=== PATIENT | female | born 1995 | race Caucasian/White ===

== ENCOUNTER 2020-10-25 05:00 | Inpatient (IN) | payer BC, MEDICAID, SELFPAY ==
[2020-10-25] VITALS (31 sets, daily range): BP systolic 97–135; BP diastolic 55–79; PULSE 49–112; RESP 18–20; TEMP 36.2–36.9; BMI 33.5
[2020-10-25] MEDS: lidocaine 2% INJ 20 mL INJECTION (05:39)
[2020-10-25] MEDS: oxytocin 30 UNIT/500 ML BAG 600 UNIT IV (05:40)
[2020-10-25] MEDS: dextrose 5%-lactated ringers 1,000 ML 125 ML IV (05:40)
[2020-10-25 05:42] LABS: Basophils % 0.3 %; Hematocrit 35.9 % (37.0-47.0); Hemoglobin 11.8 g/dL (11.5-15.3); Lymphocytes # 0.6 10^3/uL (0.8-4.8); Lymphocytes % 8.2 %; Mean Corpuscular HGB Conc 32.9 g/dL (30.0-36.0); Mean Corpuscular Hemoglobin 31.7 pg (28.0-34.0); Mean Corpuscular Volume 96.5 fl (81-99); Mean Platelet Volume 9.9 fL (7.4-10.4); Monocytes # 0.2 10^3/uL (0.2-0.9); Monocytes % 2.6 %; Neutrophils # 6.15 10^3/uL (1.8-7.7); Neutrophils % 88.5 %; Nucleated Red Blood Cells % 0 %; Platelet Count 129 10^3/cmm (130-400); Red Blood Count 3.72 10^6/uL (4.1-5.3); Red Cell Distribution Width 13.3 % (12.1-15.1)
--- NOTE | 2020-10-25 07:31 | P.PCNOB_ITS ---
Delivery Note: Date of delivery: October 25, 2020 this 25-year-old 2 now para 2 female with minimal care began anatoly late yesterday evening. She was brought to [facility] OB department by her mother this morning and upon arrival she was approximately 9 cm dilated. This physician was in-house and she rapidly delivered by spontaneous vaginal delivery a healthy, viable male at 05 11. The infant weighed 8 pounds 4 ounces with Apgars of 6 and 9 at 1 and 5 minutes respectively. Upon delivery of the head the mouth and nose were suctioned at the perineum followed by unwrapping a nuchal cord x1 and delivering the remainder of the infant without problems. The infant was suctioned again prior to laying on mother's abdomen. After approximately 2 minutes the umbilical cord was not pulsating and the umbilical cord was clamped and cut by the maternal grandmother. There was a midline second-degree perineal laceration. That laceration was sutured using Vicryl suture and local anesthesia with lidocaine 1% without epinephrine. After repairing the perineal laceration the vaginal vault was swept with fundal massage and a large amount of clots were removed and the fundus was very firm after that. Presently mother and infant are doing well. Estimated blood loss was approximately 314 mL. Pre-Delivery Course: This patient had little to no care. She did have an ultrasound at approximately 34 weeks gestation which put her EDC at 10/04/2020. I will be checking to see if we have any labs at all at the clinic as there are none available at the hospital at this time. She feels that her blood type is A positive but is not completely sure. Delivery: Spontaneous vaginal delivery, rapidly. Post-Delivery Status: Patient is doing very well at this time with no significant bleeding. A&P Assessment and plan (1) Normal spontaneous vaginal delivery: Patient is doing well at this time. She will be followed for routine care. We will adjust orders as necessary. Labs are pending. Status: Acute Coding Level of Care Code Acute Weighmaster for Chg Fwd Diagnoses Normal spontaneous vaginal delivery O80
--- NOTE | 2020-10-25 07:41 | P.HP_ITS ---
Providers/Chief Complaint Admitting Physician: Lamin Aguirre MD Chief Complaint: labor History of Present Illness SYLVIE CARBONE is a 25 year old female who is a 2, now para 2 female. She is not completely sure when her last menstrual period was but she feels that she was approximately 41-1/2 weeks gestation. She did have an ultrasound done at 34 weeks on 08/25/20 which put her EDC at 10/04/2020. She feels that she is pr obably blood type a positive but cannot be sure. She had basically no care except one visit for an ultrasound. She denies any medical problems in the past. She denies any medications or drug use or abuse. There is no family history of major medical problems. Review of Systems Const: Denies: fever(s), chills or fatigue Eyes: Denies: change in vision or blurry vision ENMT: Denies: throat pain or nasal discharge Card: Denies: chest pain, palpitations or edema Resp: Denies: dyspnea, productive cough or non-productive cough GI: Denies: abdominal pain, nausea, vomiting or heartburn : Reports: vaginal bleeding (She just delivered an .) Musc: Denies: neck pain or back pain Neuro: Denies: headache(s) or weakness in extremities Psych: Denies: anxiety or depression Yousif/Lymph: Denies: easy bruising All/Imm: Denies: urticaria or throat swelling Medications/Allergies Home Medications Medication Instructions Recorded Confirmed Last Taken Type No Known Home Medications 10/25/20 10/25/20 Unknown History Allergies Allergy/AdvReac Type Severity Reaction Status Date / Time No Known Allergies Allergy Verified 10/25/20 05:43 PFSH Acute Female Reproductive History: : 2 Vitals/I&O/Wt Last Vital Signs Pulse 49 L 10/25/20 07:33 Resp 20 H 10/25/20 05:28 BP 110/65 10/25/20 07:33 Weight last 48 hrs Weight 88.451 kg Physical Exam Const: COMMON NORMALS: no acute distress and average body habitus GENERAL APPEARANCE: cooperative, comfortable and well developed Resp: COMMON NORMALS: normal respiratory effort, No retractions, No use of accessory muscles and clear to auscultation bilaterally Cardio: COMMON NORMALS: regular rate, regular rhythm and No murmurs present (Cardio) GI: COMMON NORMALS: Normal to inspection, nondistended, normoactive bowel sounds present, Soft to palpation and non-tender (Fundus is firm and about 3 cm below the umbilicus.) Extremity: COMMON NORMALS: normal to inspection, full ROM, no calf tenderness and no pedal edema Neuro: COMMON NORMALS: moves all extremities, no focal motor deficits and no sensory deficits noted Psych: COMMON NORMALS: mental status grossly normal, cooperative and normal affect Skin: COMMON NORMALS: no rashes or lesions noted and turgor normal Data : 10/25/20 05:04 A&P Assessment and plan (1) Term delivered: Patient appears to be doing very well at this time post delivery. We will be checking laboratory work for ensuring blood type and other things that need to be followed up on after delivery. Status: Acute (2) No care in current : I will look in clinic notes from [facility] to see if lab work has been done. We will monitor closely for problems. Status: Acute Attestations Medical Necessity Statement*: This patient was in active labor when she arrived and delivered shortly after arrival. She requires at least a 1 midnight hospital stay. Time Spent in Patient Care: 16 - 35 minutes Coding Level of Care Code Acute Clinical Rehabilitation Aide for Chg Fwd Diagnoses Term delivered O80 No care in current O09.30
[2020-10-25] MEDS: benzocaine-menthol 78 gm Canister 1 SPRAY TOPICAL (08:36)
[2020-10-25] MEDS: prenatal vitamin Capsule 1 CAP PO (08:37)
[2020-10-25] MEDS: ibuprofen 800 mg tablet PO ×2 (08:37→20:32)
[2020-10-25] MEDS: docusate sodium 100 mg Capsule PO ×2 (08:37→18:16)
[2020-10-25 09:13] LABS: Amphetamines Screen Urine Negative (Negative); Barbiturates Screen Urine Negative (Negative); Benzodiazepines Screen Urine Negative (Negative); Cocaine Screen Urine Negative (Negative); Opiate Screen Urine Negative (Negative); PCP Screen Urine Negative (Negative); THC Screen Urine Negative (Negative)
[2020-10-25 09:57] LABS: Hepatitis B Surface Antigen Non-Reactive (Nonreactive)
[2020-10-25 10:04] LABS: Rapid Plasma Reagin Syphilis Nonreactive (Nonreactive)
[2020-10-25 13:53] LABS: HIV 1 & 2 Antibody Non-Reactive (Non-Reactiv); HIV 1 & 2 Antigen Non-Reactive (Non-Reactiv)
[2020-10-25 19:57] LABS: Hemoglobin 9.9 g/dL (11.5-15.3); Mean Corpuscular Hemoglobin 32.2 pg (28.0-34.0); Mean Corpuscular Volume 97.7 fl (81-99); Mean Platelet Volume 9.9 fL (7.4-10.4); Platelet Count 107 10^3/cmm (130-400); Red Blood Count 3.07 10^6/uL (4.1-5.3); Red Cell Distribution Width 13.4 % (12.1-15.1); White Blood Count 5.5 10^3/uL (4.0-10.0)
[2020-10-26] VITALS (7 sets, daily range): BP systolic 89–103; BP diastolic 51–60; PULSE 81–99; RESP 16–18; TEMP 36.1–36.9
--- NOTE | 2020-10-26 08:58 | PM.OBGYDC ---
Discharge Providers ENERGY ADMINISTRATOR Date of Admission: 10/25/20 05:00 Date of Discharge: 10/26/20 Attending Provider at Admission: Lamin Aguirre MD Attending Provider at Discharge: Lamin Aguirre MD Diagnoses at Discharge Discharge Diagnosis (1) Term delivered: Status: Acute (2) No care in current : Status: Acute Reason for Visit Reason for Visit: labor Hospital Course Hospital Course Patient has done well since delivery. She has had mild lochia with no significant clots or cramping. She is ambulating well and tolerating a regular diet. The is breast-feeding well and she is felt to be stable for discharge. Information Peripartum Data: Delivery Method: Vaginal Physical Exam Const: COMMON NORMALS: no acute distress, healthy appearing, alert and well nourished HENMT: COMMON NORMALS: moist oral mucous membranes Resp: COMMON NORMALS: normal respiratory effort, No retractions, No use of accessory muscles and clear to auscultation bilaterally AUSCULTATION: clear to auscultation bilaterally Cardio: COMMON NORMALS: regular rate, regular rhythm and No murmurs present (Cardio) RATE: regular rate RHYTHM: regular rhythm GI: COMMON NORMALS: Normal to inspection, nondistended, normoactive bowel sounds present and Soft to palpation (Fundus is firm and well below the umbilicus.) PALPATION: Yes Soft to palpation (Fundus is firm and well below the umbilicus.) : COMMON NORMALS: Yes no CVA tenderness BLADDER/KIDNEY EXAM: Yes no CVA tenderness Back/Pelvis: COMMON NORMALS: no CVA tenderness Extremity: COMMON NORMALS: normal to inspection, full ROM, capillary refill normal, no calf tenderness and no pedal edema Neuro: COMMON NORMALS: moves all extremities, no focal motor deficits and no sensory deficits noted SENSORIUM/ORIENTATION: Yes alert Psych: COMMON NORMALS: mental status grossly normal and cooperative Discharge Data Data Completed and Pending: Pending at discharge Category Date Time Status Miscellaneous Gabriela t Routine Lab 10/25/20 08:40 Received Retype for Patiet s ABO/Rh Routine Lab 10/25/20 12:07 Ordered Rubeola Antibody IGG Routine Lab 10/25/20 08:30 Received Labs from last 24 hours 10/25/20 10/25/20 10/25/20 19:25 08:40 08:40 WBC 5.5 RBC 3.07 L Hgb 9.9 L Hct 30.0 L MCV 97.7 MCH 32.2 MCHC 33.0 RDW 13.4 Plt Count 107 L MPV 9.9 Urine Opiates Scre en Negative Ur Barbiturates Sc reen Negative Ur Phencyclidine S crn Negative Ur Amphetamines Sc reen Negative U Benzodiazepines Scrn Negative Urine Cocaine Scre en Negative U Marijuana (THC) Screen Negative RPR Hep Bs Antigen HIV 1&2 Ab & HIV 1 Ag HIV 1&2 Antibody Rubeola (Measles) IgG Misc Test Referenc e Pending Blood Type Rho(D) Type Antibody Screen 10/25/20 10/25/20 10/25/20 08:30 08:30 08:30 WBC RBC Hgb Hct MCV MCH MCHC RDW Plt Count MPV Urine Opiates Scre en Ur Barbiturates Sc reen Ur Phencyclidine S crn Ur Amphetamines Sc reen U Benzodiazepines Scrn Urine Cocaine Scre en U Marijuana (THC) Screen RPR Nonreactive Hep Bs Antigen HIV 1&2 Ab & HIV 1 Ag Non-reactive HIV 1&2 Antibody Non-reactive Rubeola (Measles) IgG Pending Misc Test Referenc e Blood Type Rho(D) Type Antibody Screen 10/25/20 10/25/20 08:30 05:04 WBC RBC Hgb Hct MCV MCH MCHC RDW Plt Count MPV Urine Opiates Scre en Ur Barbiturates Sc reen Ur Phencyclidine S crn Ur Amphetamines Sc reen U Benzodiazepines Scrn Urine Cocaine Scre en U Marijuana (THC) Screen RPR Hep Bs Antigen Non-reactive HIV 1&2 Ab & HIV 1 Ag HIV 1&2 Antibody Rubeola (Measles) IgG Misc Test Referenc e Blood Type A Positive Rho(D) Type Positive Antibody Screen Negative Vitals: Last Vital Signs Temp 97.2 F L 10/25/20 18:10 Pulse 85 10/26/20 04:30 Resp 18 10/25/20 09:30 BP 103/60 10/26/20 04:30 Discharge Plan Discharge Patient Disposition: Home Condition: Stable Prescriptions: New docusate sodium 100 mg Capsule 100 mg PO BID Qty: 60 RF: 0 ibuprofen 800 mg Tablet 800 mg PO TID Qty: 60 RF: 1 -U 106.5-1 mg Capsule 1 cap PO DAILY Qty: 90 RF: 0 No Action No Known Home Medications RF: 0 Discharge Orders: Discharge Order (Routine); Ordered 10/26/20 Ordered By: Lamin Aguirre Discharge Diet: Usual diet Discharge Activity: Resume usual activity Patient Instructions: Your 's Appearance (GEN), Your Baby (DC), and Nipple Soreness (DC), Breast Fullness Versus Breast Engorgement (DC), and Plugged Ducts (DC), Pre-eclampsia and Eclampsia (DC), OB Discharge Report, OB Food/Drug Interaction Guide, OB Care at Home, Opioid Safety, OB Home Care, OB Proud Parent Packet, OB Vaginal Deliveries, Abnormal Bleeding, Depression Discharge Attestations ENERGY ADMINISTRATOR Time Spent in Discharge Care*: less than 30 min Specific Discharge Activities: Specific discharge activities: educating patient, documenting/other paperwork and evaluating patient/reviewing data Coding Level of Care Code Acute Equipment Superintendent for Chg Fwd Diagnoses Term delivered O80 No care in current O09.30
[2020-10-26] MEDS: prenatal vitamin Capsule 1 CAP PO (10:27)
[2020-10-26] MEDS: ibuprofen 800 mg tablet PO ×2 (10:27→15:15)
[2020-10-26] MEDS: HYDROcodone-acetaminophen 5-325 mg Tablet PO (10:28)
== END 2020-10-26 15:30 | disposition home or self-care (01) | DRG 807 ==
PROVIDERS: Admitting Provider Family Medicine; Visit Provider Family Medicine
DX: O48.0 Post-term pregnancy (principal); Z37.0 Single live birth; Z3A.41 41 weeks gestation of pregnancy; O70.1 Second degree perineal laceration during delivery; O69.2XX0 Labor and delivery complicated by other cord entanglement, with compression, not applicable or unspecified
CPT/HCPCS: 36415; 59025; 59409; 80306; 85025; 85027; 86592; 86765; 86850; 86900; 87340; 87491; 87591; 87806; 99211

== ENCOUNTER 2021-06-01 17:12 | Day surgery (SDC) | payer BC, MEDICAID, SELFPAY ==
[2021-06-01] VITALS (7 sets, daily range): BP systolic 102–122; BP diastolic 52–76; PULSE 87–117; RESP 16–24; TEMP 36.8; O2SAT 95–98; BMI 27.1
--- NOTE | 2021-06-01 17:58 | CTR_ITS ---
PROCEDURE INFORMATION: Exam: CT Abdomen And Pelvis With Contrast Exam date and time: 06/01/2021 7:19 PM Age: 25 years old Clinical indication: Abdominal pain; Acute; Patient HX: Rlq pain; Additional info: Eval rlq pain TECHNIQUE: Imaging protocol: Computed tomography of the abdomen and pelvis with contrast. Radiation optimization: All CT scans at this facility use at least one of these dose optimization techniques: automated exposure control; mA and/or kV adjustment per patient size (includes targeted exams where dose is matched to clinical indication); or iterative reconstruction. Contrast material: OMNI 300; Contrast volume: 95 ml; Contrast route: INTRAVENOUS (IV); COMPARISON: US OB >= 14 weeks fetus [id number] 08/25/2020 3:23 PM RADIATION DOSE METRICS: Total DLP (mGy-cm): 1495.67 FINDINGS: Liver: Normal. No mass. Gallbladder and bile ducts: Normal. No calcified stones. No ductal dilation. Pancreas: Normal. No ductal dilation. Spleen: Normal. No splenomegaly. Adrenal glands: Normal. No mass. Kidneys and ureters: Punctate nonobstructing stone noted in the right kidney series 2, image 35. No hydronephrosis. Stomach and bowel: Unremarkable. No obstruction. No mucosal thickening. Appendix: Fluid-filled dilated appendix with mild mucosal thickening measuring up to 1 cm in transverse dimension. No periappendiceal fluid collection. Intraperitoneal space: Unremarkable. No free air. No significant fluid collection. Vasculature: Unremarkable. No abdominal aortic aneurysm. Lymph nodes: Unremarkable. No enlarged lymph nodes. Urinary bladder: Unremarkable as visualized. Reproductive: 2 cm right ovarian cyst, likely a dominant follicle. Bones/joints: No acute fracture. Soft tissues: Unremarkable. CT/CT abdomen pelvis w con* [id number] IMPRESSION: 1. Acute appendicitis. No periappendiceal fluid collection. 2. Punctate nonobstructing stone in the right kidney.
[2021-06-01] MEDS: morphine 4 mg/mL SDV 1 mL IVP ×2 (18:31→22:12)
[2021-06-01] MEDS: sodium chloride 0.9% 1,000 ML 999 ML IV (18:32)
[2021-06-01] MEDS: ondansetron 2 mg/ML SDV 2 mL 4 MG IVP (18:32)
[2021-06-01 18:38] LABS: Basophils # 0.1 10^3/uL (0.0-0.1); Basophils % 0.3 %; Eosinophils % 0.2 %; Hematocrit 40.7 % (37.0-47.0); Lymphocytes # 2.2 10^3/uL (0.8-4.8); Lymphocytes % 13.1 %; Mean Corpuscular HGB Conc 34.4 g/dL (30.0-36.0); Mean Platelet Volume 8.8 fL (7.4-10.4); Monocytes # 0.8 10^3/uL (0.2-0.9); Neutrophils # 13.44 10^3/uL (1.8-7.7); Neutrophils % 81.1 %; Nucleated Red Blood Cells % 0 %; Platelet Count 300 10^3/cmm (130-400); Red Blood Count 4.52 10^6/uL (4.1-5.3); Red Cell Distribution Width 12.3 % (12.1-15.1); White Blood Count 16.6 10^3/uL (4.0-10.0)
--- NOTE | 2021-06-01 18:43 | W.ED.GENADLT ---
HPI - General Adult General: Chief complaint: Abdominal Pain Stated complaint: Rt side ABD Pain possible Appendicitus Time Seen by Provider: 06/01/21 17:58 History of Present Illness: Patient is a 25-year-old female with 2 prior pregnancies presenting to the emergency room with complaints of right lower quadrant abdominal pain since 1230 today. Patient reports significant nausea vomiting fever chills and right lower quadrant abdominal pain. On arrival, patient says the pain is unrelieved and constant. Patient denies any new urinary complaints, or new vaginal discharge. No prior history of kidney stones. No prior abdominal surgery. Patient has no other focal complaints at this time. Onset: 12:30pm Duration: 6 hrs Location:home Severity:severe Associated symptoms: Reports nausea and vomiting; Deny chest pain, dyspnea, rash or palpitations Review of Systems Const: Denies: fever(s) or chills Eyes: Denies: change in vision ENMT: Denies: mouth pain Card: Denies: chest pain or palpitations Resp: Denies: dyspnea or non-productive cough GI: Reports: abdominal pain, nausea and vomiting; Denies: diarrhea : Denies: dysuria Musc: Denies: extremity pain Skin/Breast: Denies: rash or new lesions Neuro: Denies: weakness in extremities Psych: Reports: other (Normal mood) Yousif/Lymph: Denies: easy bruising PFS ED PFSH: Medical History (Updated 06/01/21 @ 19:56 by Suleman Mclaughlin MD) No pertinent past medical history Social History (Updated 06/01/21 @ 18:44 by Suleman Mclaughlin MD) Smoking and tobacco status: never smoked Alcohol intake: never Substance/Drug Use: never Physical Exam Const: COMMON NORMALS: alert HENMT: COMMON NORMALS: atraumatic HEAD & SCALP: atraumatic MOUTH: moist mucous membranes abnormal Eye: COMMON NORMALS: EOMs intact bilaterally and conjunctivae normal CONJUNCTIVA: Yes conjunctivae normal Neck/C-Spine: COMMON NORMALS: full ROM and supple Resp: COMMON NORMALS: normal respiratory effort and clear to auscultation bilaterally AUSCULTATION: clear to auscultation bilaterally Cardio: RATE: tachycardic GI: COMMON NORMALS: Soft to palpation PALPATION: Yes Soft to palpation OTHER: +moderate/severe RLQ focal TTP. +Voluntary guarding. NO guarding rebound, guarding, rigidity. No CVA tenderness to percussion. Neg Villavicencio/Neg McBurney's point tenderness, no suprabupic tenderness to palpation. Extremity: COMMON NORMALS: full ROM Neuro: SENSORIUM/ORIENTATION: Yes alert MOTOR EXAM: No Abnormal motor strength present and Other motor observations present (no focal motor deficits) Psych: COMMON NORMALS: speech normal SPEECH: Yes normal speech MOOD & AFFECT: Yes euthymic mood Course Vital Signs: Vital signs: Vital Signs Temperature 98.3 F 06/01/21 17:29 Pulse Rate 94 06/01/21 19:04 Respiratory Rate 20 H 06/01/21 19:04 Blood Pressure 112/72 06/01/21 19:04 Pulse Oximetry 97 06/01/21 19:04 MDM - General Adult Medical Decision Making 25-year-old female presenting to the emergency room with sudden onset of right lower quadrant dull pain with nausea and vomiting. Exam, patient is focally tender in the right lower quadrant. Patient is dry and tachycardic, in moderate distress. Patient received IVF, morphine, Zofran with mild improvement in symptoms. White count of 16.6. CT of the pelvis showed acute uncomplicated appendicitis. Patient received cefazolin. Case discussed with Dr. Newton. Dr. Newton recommended giving patient Zosyn. Patient received Zosyn. Patient received IVF, morphine, Zofran with significant improvement nausea vomiting abdominal pain. Disposition: admission/OR Lab Data : 06/01/21 18:26 06/01/21 18:26 Radiology Impressions Abdomen/Pelvis CT 06/01/21 17:58 IMPRESSION: 1. Acute appendicitis. No periappendiceal fluid collection. 2. Punctate nonobstructing stone in the right kidney. Laboratory Results WBC 16.6 10^3/uL (4.0-10.0) H 06/01/21 18:26 RBC 4.52 10^6/uL (4.1-5.3) 06/01/21 18:26 Hgb 14.0 g/dL (11.5-15.3) 06/01/21 18: Hct 40.7 % (37.0-47.0) 06/01/21 18:26 MCV 90.0 fl (81-99) 06/01/21 18: MCH 31.0 pg (28.0-34.0) 06/01/21 18:26 MCHC 34.4 g/dL (30.0-36.0) 06/01/21 18: RDW 12.3 % (12.1-15.1) 06/01/21 18: Plt Count 300 10^3/cmm (130-400) 06/01/21 18: MPV 8.8 fL (7.4-10.4) 06/01/21 18: Neut % (Auto) 81.1 % 06/01/21 18: Lymph % (Auto) 13.1 % 06/01/21 18: [place] % (Auto) 5.0 % 06/01/21 18: Eos % (Auto) 0.2 % 06/01/21 18: Baso % (Auto) 0.3 % 06/01/21 18: Neut # (Auto) 13.44 10^3/uL (1.8-7.7) H 06/01/21 18: Lymph # (Auto) 2.2 10^3/uL (0.8-4.8) 06/01/21 18: [place] # (Auto) 0.8 10^3/uL (0.2-0.9) 06/01/21 18: Eos # (Auto) 0.0 10^3/uL (0.0-0.8) 06/01/21 18: Baso # (Auto) 0.1 10^3/uL (0.0-0.1) 06/01/21 18: Nucleated RBC % (auto) 0 % 06/01/21 18: Nucleated RBCs # 0.0 /100WBC 06/01/21 18: PT 14.40 SECONDS (12.1-14.9) 06/01/21 19:54 INR 1.08 (0.8-1.2) 06/01/21 19:54 APTT 32.8 SECONDS (23.9-36.7) 06/01/21 19:54 Sodium 136 mmol/L (136-145) 06/01/21 18:26 Potassium 3.6 mmol/L (3.5-5.1) 06/01/21 18: Chloride 103 mmol/L (98-107) 06/01/21 18: Carbon Dioxide 19 mmol/L (22-29) L 06/01/21 18:26 Anion Gap 17.6 (5-19) 06/01/21 18:26 BUN 9 mg/dL (6-20) 06/01/21 18: Creatinine 0.7 mg/dL (0.5-0.9) 06/01/21 18:26 GFR Calculation 102.8 mL/min (90-130) 06/01/21 18: Glucose 88 mg/dL (65-115) 06/01/21 18: Calculated Osmolality 280 mOsm/kg (285-295) L 06/01/21 18:26 Calcium 9.5 mg/dL (8.5-10.5) 06/01/21 18: Total Bilirubin 1.2 mg/dL (0.15-1.2) 06/01/21 18: AST 14 U/L (0-32) 06/01/21 18: ALT 13 U/L (0-33) 06/01/21 18:26 Alkaline Phosphatase 111 IU/L (35-105) H 06/01/21 18:26 Total Protein 7.8 g/dL (6.6-8.7) 06/01/21 18: Albumin 4.4 g/dL (3.5-5.2) 06/01/21 18: Globulin 3.4 g/dL (1.3-4.6) 06/01/21 18: Lipase 30 U/L (13-60) 06/01/21 18:26 HCG, Qual Negative (Negative) 06/01/21 18:26 Urine Color Yellow (Yellow) 06/01/21 19:01 Urine Appearance Clear (CLEAR) 06/01/21 19:01 Urine pH 9 (5-7) H 06/01/21 19:01 Ur Specific [place] 1.015 (1.005-1.030) 06/01/21 19:01 Urine Protein Neg (Negative) 06/01/21 19:01 Urine Glucose (UA) Norm (Normal) 06/01/21 19:01 Urine Ketones Negative (Negative) 06/01/21 19:01 Urine Blood Neg (Negative) 06/01/21 19:01 Urine Nitrate Negative (Negative) 06/01/21 19:01 Urine Bilirubin Neg (Negative) 06/01/21 19:01 Prot Sulfosalicylic Acd Negative (Negative) 06/01/21 19:01 Urine Urobilinogen Norm mg/dL (Negative) 06/01/21 19:01 Ur Leukocyte Esterase Negative (Negative) 06/01/21 19:01 Imaging Data Other Imaging: [facility] [address] [place] [address] CT Scan Report Signed Patient: Mery Javed Unit #: [id number] : 1995 Age/Sex: 25 / F ADM Date: 06/01/21 Loc: ER Room/Bed: Attending Dr: Ordering Provider/Ordering MD: Suleman Mclaughlin MD Date of Service: 06/01/21 Procedure(s): CT abdomen pelvis w con* [id number] Accession Number(s): [id number] Report Number: [id number] PROCEDURE INFORMATION: Exam: CT Abdomen And Pelvis With Contrast Exam date and time: 06/01/2021 7:19 PM Age: 25 years old Clinical indication: Abdominal pain; Acute; Patient HX: Rlq pain; Additional info: Eval rlq pain TECHNIQUE: Imaging protocol: Computed tomography of the abdomen and pelvis with contrast. Radiation optimization: All CT scans at this facility use at least one of these dose optimization techniques: automated exposure control; mA and/or kV adjustment per patient size (includes targeted exams where dose is matched to clinical indication); or iterative reconstruction. Contrast material: OMNI 300; Contrast volume: 95 ml; Contrast route: INTRAVENOUS (IV);? COMPARISON: US OB >= 14 weeks fetus [id number] 08/25/2020 3:23 PM RADIATION DOSE METRICS: Total DLP (mGy-cm): 1495.67 FINDINGS: Liver: Normal. No mass. Gallbladder and bile ducts: Normal. No calcified stones. No ductal dilation. Pancreas: Normal. No ductal dilation. Spleen: Normal. No splenomegaly. Adrenal glands: Normal. No mass. Kidneys and ureters: Punctate nonobstructing stone noted in the right kidney series 2, image 35. No hydronephrosis. Stomach and bowel: Unremarkable. No obstruction. No mucosal thickening. Appendix: Fluid-filled dilated appendix with mild mucosal thickening measuring up to 1 cm in transverse dimension. No periappendiceal fluid collection. Intraperitoneal space: Unremarkable. No free air. No significant fluid collection. Vasculature: Unremarkable. No abdominal aortic aneurysm. Lymph nodes: Unremarkable. No enlarged lymph nodes. Urinary bladder: Unremarkable as visualized. Reproductive: 2 cm right ovarian cyst, likely a dominant follicle. Bones/joints: No acute fracture. Soft tissues: Unremarkable. CT/CT abdomen pelvis w con* [id number] IMPRESSION: 1. Acute appendicitis. No periappendiceal fluid collection. 2. Punctate nonobstructing stone in the right kidney. ? Dictated By: Naseem Sharp DO Signed By: Naseem Sharp DO Signed Date/Time: 06/01/212011 DD/ 18 Discharge Plan Discharge Patient Disposition: Admitted As Inpatient Clinical Impression: Acute appendicitis, Abdominal pain, Nausea & vomiting Coding Level of Care Code ED Exhibit Carpenter for Siobhang Fwd Exam Comprehensive
[2021-06-01 18:57] LABS: Alanine Aminotransferase 13 U/L (0-33); Albumin Level 4.4 g/dL (3.5-5.2); Alkaline Phosphatase 111 IU/L (35-105); Anion Gap 17.6 (5-19); Aspartate Amino Transferase 14 U/L (0-32); Blood Urea Nitrogen 9 mg/dL (6-20); Calcium 9.5 mg/dL (8.5-10.5); Carbon Dioxide 19 mmol/L (22-29); Chloride 103 mmol/L (98-107); Globulin 3.4 g/dL (1.3-4.6); Glomerular Filtration Rate 102.8 mL/min (90-130); Glucose 88 mg/dL (65-115); Lipase 30 U/L (13-60); Osmolality Calculated 280 mOsm/kg (285-295); Potassium 3.6 mmol/L (3.5-5.1); Sodium 136 mmol/L (136-145); Total Bilirubin 1.2 mg/dL (0.15-1.2); Total Protein 7.8 g/dL (6.6-8.7)
[2021-06-01 18:58] LABS: HCG, Serum Qual Negative (Negative)
[2021-06-01] MEDS: HYDROmorphone 1 mg/mL INJ 1 mL 0.5 MG IVP (19:03)
[2021-06-01] MEDS: ceFAZolin 1,000 MG in sodium chloride 0.9% (plus) 50 ML 100 MG IV (19:04)
[2021-06-01 19:07] LABS: Add Urine Microscopic? NO; Charge for UA Resulting for Rev
[2021-06-01 19:15] LABS: Bilirubin Urine Neg (Negative); Blood Urine Neg (Negative); Glucose Urine UA Norm (Normal); Ketones Urine Negative (Negative); Leukocyte Esterase Urine Negative (Negative); Nitrate Urine Negative (Negative); Protein Urine Neg (Negative); Specific Gravity, Urine 1.015 (1.005-1.030); Sulfosalicylic Acid Urine Negative (Negative); Urine Appearance Clear (CLEAR); Urine Color Yellow (Yellow); Urobilinogen Urine Norm (Negative); pH Urine 9 (5-7)
[2021-06-01] MEDS: iohexol 300 mg/mL 100 mL Btl IV (19:26)
[2021-06-01 20:14] LABS: INR 1.08 (0.8-1.2)
[2021-06-01 20:15] LABS: Partial Thromboplastin Time 32.8 SECONDS (23.9-36.7)
[2021-06-01] MEDS: piperacillin-tazobactam 4.5 GM in sodium chloride 0.9% (plus) 50 ML IV (20:54)
--- NOTE | 2021-06-01 22:10 | P.ANESASSM_ITS ---
Pre-Anesthetic Assessment Height/Weight: Height 1.63 m Weight 71.668 kg Temp Pulse Resp BP Pulse Ox 98.3 F 92 16 102/76 95 06/01/21 17:29 06/01/21 22:09 06/01/21 22:09 06/01/21 22:09 06/01/21 22:09 Preop Diagnosis: acute appendicitis Operation Date: 06/02/21 06:00 Proposed Procedures p Laparoscopic Appendectomy(Not Applicable) - Mukesh Newton MD Familial anesthetic complications: none Was Beta Ewelina taken within 24 hours: N/A Was Clonidine taken within 24 hours: N/A Social No alcohol and No tobacco Exam alert, oriented x 3, clear to auscultation bilaterally and regular rate & rhythm Airway Submandibular: within normal limits Cervical ROM: within normal limits Mallampati: Class II Dentition: full Comments: Comments: Missing molar History/ROS No significant complaints Pulmonary None reported CV/HEM None reported None reported GI Acute appendicitis Metabolic None reported Musc/skel None reported Neuropsych None reported Anesthetic Plan ASA status: 2 Anesthesia: Anesthesia Evaluation and General Other: We discussed risk and benefits of general anesthesia including PONV, sore throat (sometimes severe), corneal abrasion, positioning and peripheral nerve injuries, life threatening allergic reaction, post operative ICU admission requiring prolonged intubation, stroke, heart attack, , and rare incidences of recall. Patient consents to proceed with general anesthesia. Risk of > 500 ml blood loss (7ml/kg in children): No Medications/Allergies Home Medications Medication Instructions Recorded Confirmed Last Taken Type No Known Home Medications 06/01/21 06/01/21 Unknown History Allergies Allergy/AdvReac Type Severity Reaction Status Date / Time No Known Allergies Allergy Verified 06/01/21 18:48 Current Medications Generic Name Dose Route Start Last Admin Trade Name Freq PRN Reason Stop Dose Admin Piperacillin Sod/Tazobactam 50 mls @ 100 mls/hr 06/01/21 20:15 06/01/21 20:54 Sod 4.5 gm/ Sodium Chloride IV 100 mls/hr Q8H LUCIA Administration Protocol [facility] Anesthesia Medical History (Updated 06/01/21 @ 19:56 by Suleman Mclaughlin MD) No pertinent past medical history Social History (Updated 06/01/21 @ 18:44 by Suleman Mclaughlin MD) Smoking and tobacco status: never smoked Alcohol intake: never Substance/Drug Use: never Data Anesthesia : 06/01/21 18:26 06/01/21 18:26 Short CBC 06/01/21 Range/Units 18:26 WBC 16.6 H (4.0-10.0) 10^3/uL Hgb 14.0 (11.5-15.3) g/dL Hct 40.7 (37.0-47.0) % MCV 90.0 (81-99) fl Plt Count 300 (130-400) 10^3/cmm Neut % (Auto) 81.1 % Neut # (Auto) 13.44 H (1.8-7.7) 10^3/uL BMP 06/01/21 18:26 Sodium 136 Potassium 3.6 Chloride 103 Carbon Dioxide 19 L BUN 9 Creatinine 0.7 Glucose 88 Calcium 9.5 Liver Function 06/01/21 Range/Units 18:26 Total Bilirubin 1.2 (0.15-1.2) mg/dL AST 14 (0-32) U/L ALT 13 (0-33) U/L Alkaline Phosphatase 111 H (35-105) IU/L Albumin 4.4 (3.5-5.2) g/dL Urine 06/01/21 Range/Units 19:01 Urine Color Yellow (Yellow) Urine Appearance Clear (CLEAR) Urine pH 9 H (5-7) Ur Specific [place] 1.015 (1.005-1.030) Urine Protein Neg (Negative) Urine Glucose (UA) Norm (Normal) Urine Ketones Negative (Negative) Urine Nitrate Negative (Negative) Urine Bilirubin Neg (Negative) Ur Leukocyte Esterase Negative (Negative) Coags 06/01/21 19:54 PT 14.40 INR 1.08 APTT 32.8 Cardiac Studies: No Data to Display
[2021-06-01] MEDS: HYDROmorphone 1 mg/mL INJ 1 mL IVP (23:15)
[2021-06-02] VITALS (16 sets, daily range): BP systolic 81–107; BP diastolic 49–70; PULSE 54–84; RESP 10–97; TEMP 36.4–37.1; O2SAT 94–100
[2021-06-02] MEDS: piperacillin-tazobactam 4.5 GM in sodium chloride 0.9% (plus) 50 ML IV (04:42)
[2021-06-02] MEDS: acetaminophen 1,000 MG/100 ML PIGGYBACK 400 MG IV (04:52)
--- NOTE | 2021-06-02 05:02 | PC.NURSE ---
Bedside report given to Uyen PACU - pt to OR at 0500.
--- NOTE | 2021-06-02 06:06 | P.HP_ITS ---
Providers/Chief Complaint Chief Complaint: Rt side ABD Pain possible Appendicitus History of Present Illness Mery Javed is a 25 year old female who presented to the ER last night with lower abdominal pain. Patient had a baby 9 months ago and initially thought that the abdominal pain was secondary to her starting to ovulate again but the pain progressively got worse and she developed fevers. She had nausea and vomiting last night. She denies any constipation or diarrhea. She is otherwise pretty healthy and is currently breast-feeding Review of Systems General: Reports: 10 or more systems reviewed and unremarkable except in HPI and below Medications/Allergies Home Medications Medication Instructions Recorded Confirmed Last Taken Type No Known Home Medications 06/01/21 06/01/21 Unknown History Allergies Allergy/AdvReac Type Severity Reaction Status Date / Time No Known Allergies Allergy Verified 06/01/21 18:48 PFSH Acute PFSH: Medical History No pertinent past medical history Social History Smoking and tobacco status: never smoked Alcohol intake: never Substance/Drug Use: never Female Reproductive History: Date of last menstrual period: 05/20/21 Vitals/I&O/Wt Last Vital Signs Temp 98.2 F 06/02/21 05:10 Pulse 80 06/02/21 05:10 Resp 18 06/02/21 05:10 BP 107/62 06/02/21 05:10 Pulse Ox 95 06/02/21 05:10 06/01/21 06/01/21 06/02/21 14:59 22:59 06:59 Intake Total 100 / 1100 1000 / 1100 Balance 100 / 1100 1000 / 1100 Weight last 48 hrs Weight 158 lb Physical Exam Narrative: HEENT: Normocephalic Eye: Sclera /conjunctiva normal Respiratory and chest: Bilateral clear breath sounds on auscultation Cardiovascular: Normal S1 and S2 heart sounds Abdomen: Soft to palpation, tender right lower quadrant with voluntary guarding Neurological: Oriented to place person and time Skin: Intact, no lesions appreciated on gross exam Data : 06/01/21 18:26 06/01/21 18:26 A&P Assessment and plan (1) Acute appendicitis: 25-year-old female who present to the ER yesterday with right lower quadrant pain, fevers and a white count of [address] abdomen pelvis showed acute appendicitis Plan for laparoscopic possible open appendectomy today. Patient was admitted overnight and received IV Zosyn. Procedure, risks, benefits and alternatives have been discussed with the patient who wishes to proceed with surgery. 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
[2021-06-02] MEDS: fentaNYL 50 mcg/mL INJ 2mL IVP (07:27)
--- NOTE | 2021-06-02 07:33 | ANE.PACU2 ---
Inpatient post-anesthesia follow up: Airway intact: Yes Vital signs: Temperature 97.7 F Pulse Rate 57 Respiratory Rate 14 Blood Pressure 95/58 Pulse Oximetry 97 Oxygen Delivery Me thod Room Air Oxygen Flow Rate 6 Fraction of Inspir ed Oxygen Hydration adequate: Yes Nausea and vomiting: Yes Pain level: 3 Mental status: Baseline
--- NOTE | 2021-06-02 08:01 | P.OP_ITS ---
Operative Report Date of procedure: June 02, 2021 Pre-op diagnosis: Acute appendicitis Post-op diagnosis: same Procedure done: Laparoscopic appendectomy Specimens removed/disposition: Appendix Surgeon: Mukesh Newton Anesthesia: General Condition: stable Disposition: PACU Procedure: The patient was taken to the Operating Room and intubated under general anesthesia after antibiotic had been administered. Using a 15 blade, a 1-cm infraumbilical incision was made and using open Britni technique, the peritoneal cavity was entered. A 12mm port with balloon was placed and 14 mm of pne umoperitoneum was created and 10-mm 30 degree scope was introduced. Two separate 5mm ports were placed in the left and right lower quadrant under direct visualization. The appendix was noted in the right lower quadrant and appeared acutely inflamed.. Using [place] forceps, an opening was made in the mesoappendix near the base of the appendix. An Endo RIKKI stapler 45mm long 3.5mm blue load was introduced to divide the appendix at it's base. Using electrocautery, the mesoappendix including the appendicular artery was divided. There was no bleeding noted and the staple line appeared intact. The right lower quadrant was irrigated with saline and an EndoCatch bag was introduced to remove the appendix. All three ports were removed under direct visualization and there was no bleeding noted on the port sites. 10 cc of 0.5% Marcaine was infiltrated at the port sites. The fascia at the umbilical port was closed using figure of eight 0-Vicryl sutures and subcutaneous tissue was approximated using 3-0 Vicryl and skin at all 3 port sites was closed using 4-0 Monocryl and Dermabond. The patient was extubated and transferred recovery room in stable condition.
[2021-06-02] MEDS: sodium chloride 0.9% 500 ML 999 ML IV (08:11)
== END 2021-06-02 08:43 | disposition home or self-care (01) ==
LOC: ER 23:09 → ER IP 06-02 04:51 → ER 06-02 05:02 → OPS 06-02 05:02 → OR 06-02 07:08
PROVIDERS: Emergency Provider Emergency Medicine; Visit Provider Surgery
PROC: 0DTJ4ZZ Resection of Appendix, Percutaneous Endoscopic Approach (ICD-10-PCS; CPT 44970; principal; 2021-06-02 06:00)
DX: K35.80 Unspecified acute appendicitis (principal)
CPT/HCPCS: 44970; 36415; 74177; 80053; 81003; 83690; 84703; 85025; 85610; 85730; 88304; J0690; J1100; J1170; J1200; J2270; J2405; J2543; J2704; J2710; J3010; J3490; J7030; J7040; Q9967

== ENCOUNTER → 2022-06-01 09:35 | Outpatient (BNVA) | payer OTHER, BC, MEDICAID, SELFPAY | PROVIDERS: PCP Registered Nurse; Visit Provider Registered Nurse | DX: Z02.83 Encounter for blood-alcohol and blood-drug test (principal) | CPT/HCPCS: 80307 ==